=== PATIENT | female | born 1990 | race Caucasian/White ===

== ENCOUNTER 2020-04-14 17:53 | Emergency (ER) | payer SELFPAY ==
[~2020-04-14 17:53] MED LIST: Iopamidol-370 76% 500 ML 1 ML ONE
[2020-04-14] MEDS ORDERED: Ketorolac Tromethamine 30 MG/ML VIAL ONE (18:24)
[2020-04-14] MEDS ORDERED: Clindamycin/D5W 900 mg/50 ml Premix Bag ONE (18:24)
[2020-04-14 18:27] LABS: #Basophils 0.1 thou/uL (0.0-0.2); #Lymphocytes 2.8 thou/uL (1.20-3.40); %Basophils 0.4 % (0.0-1.0); %Eosinophils 0.3 % (0.0-10.0); %Lymphocytes 19.9 % (21.0-51.0); %Monocytes 6.8 % (0.0-10.0); %Neutrophils 72.6 % (42.0-75.0); Hemoglobin 12.6 g/dL (12.0-16.0); Mean Corpuscular HGB CONC 33.6 g/dL (32.0-36.0); Mean Corpuscular Hemoglobin 32.1 pg (27.0-31.0); Mean Corpuscular Volume 95.5 fL (78.0-98.0); Mean Platelet Volume 7.5 fL (7.4-10.4); Platelet Count 214 thou/uL (130-400); RBC Distribution Width 10.8 % (11.5-14.5); Red Blood Cell (RBC) Count 3.92 mill/uL (4.20-5.40); White Blood Cell (WBC) Count 13.8 thou/uL (4.8-10.8)
[2020-04-14 18:41] LABS: Bilirubin Negative (Negative); Blood, Urine Negative (Negative); Clarity Clear (Clear); Glucose, Urine (Dipstick) Normal (Negative); Ketone, Urine Negative (Negative); Leukocyte Negative Leu/uL (Negative); Nitrite Negative (Negative); Protein, Urine (Dipstick) Negative (Neg-Trace); Specific Gravity, Urine 1.006 (1.002-1.036); Urobilinogen Normal mg/dL (Less than 2); pH, Urine 6.5 (5.0-9.0)
[2020-04-14 18:51] LABS: ALT (SGPT) 8 U/L (8-55); AST (SGOT) 13 U/L (5-34); Albumin 4.2 g/dL (3.5-5.0); Alkaline Phosphatase 54 U/L (40-110); Anion Gap 13 mmol/L (10-20); BUN (Urea Nitrogen) 12 mg/dL (7.0-18.7); Bilirubin, Total 0.3 mg/dL (0.2-1.2); Calc. Creatinine Clearance 0 mL/min (70-130); Carbon Dioxide 24 mmol/L (22-29); Chloride 105 mmol/L (98-107); Estimated GFR-MDRD Greater than 90; Glucose 97 mg/dL (70-105); Potassium 3.8 mmol/L (3.5-5.1); Protein, Total 7.2 g/dL (6.0-8.3); Sodium 138 mmol/L (136-145)
[2020-04-14 18:54] LABS: BHCG - Serum Negative (NEGATIVE); Pregs Control Background? CLEAR/WHITE (CLR/WHITE); Pregs Control Bar Appear? YES (CONTROL BAR)
--- NOTE | 2020-04-14 21:14 | CT ---
CT PELVIS WITH IV CONTRAST: Date: 04-14-2020 PROVIDED CLINICAL HISTORY: Evidence for rectal abscess. FINDINGS: The visualized intrapelvic contents appear unremarkable. The osseous structures demonstrate no concer choco lytic or blastic lesions. There is no evidence for hip joint effusion. There is asymmetric soft tissue density present at the inferior aspect of the cleft left of mid line, with a central low density area measuring about 1 cm. This does not have HU of true fluid densi ty. There is no significant asymmetric stranding of the ischiorectal fossa fat. There is mild strandi ng of the immediately surrounding gluteal subcutaneous adipose layer. IMPRESSION: 1. Asymmetric soft tissue density adjacent to the expected location of the anus with central low density, likely reflecting phlegmon. 2. No discrete, drainable abscess is evident. POS: [facility]
== END 2020-04-14 20:06 | disposition home or self-care (01) ==
LOC: ERS 17:53
DX: K61.1 Rectal abscess (principal); Z79.899 Other long term (current) drug therapy; F17.210 Nicotine dependence, cigarettes, uncomplicated
CPT/HCPCS: 36415; 72193; 80053; 81003; 83605; 84703; 85025; 87040; 96365; 96375; J1885; J3490; Q9967